=== PATIENT | female | born 1950 | race Caucasian/White ===

== ENCOUNTER → 2016-10-22 | Day surgery (SDC) | payer OTHER ==
[~2016-10-22] VITALS: Ht 165.1 cm; Wt 72.7 kg
[2016-10-22 10:18] LABS: HCT 45.6 % (37.0-47.0); HGB 15.6 g/dl (12.5-16.0); MCH 31.9 pg (25.0-31.0); MCHC 34.2 g/dL (32.0-36.0); MCV 93.3 fL (78.0-100.0); MPV 10.4 fL (6.0-9.5); RBC 4.89 M/uL (4.20-5.40); RDW 14.1 % (11.5-14.0); WBC 10.8 K/uL (4.0-10.5)
[2016-10-22 10:37] LABS: ALBUMIN 4.2 g/dL (3.4-4.8); BILIRUBIN - TOTAL 0.5 mg/dL (0.1-1.0); CREATININE 0.7 mg/dL (0.5-1.0); GLOBULIN (CALCULATION) 2.6 g/dL (2.2-4.2); POTASSIUM 4.8 mmol/L (3.5-5.1); TOTAL PROTEIN 6.8 g/dL (6.4-8.3)
== END | disposition home or self-care (01) ==
LOC: FAS 10-08 09:00 → FIS 08:02 → FAS 08:02
PROVIDERS: Surgery
DX: K29.50 Unspecified chronic gastritis without bleeding (principal); K21.0 Gastro-esophageal reflux disease with esophagitis; M19.90 Unspecified osteoarthritis, unspecified site; Z87.891 Personal history of nicotine dependence; Z90.710 Acquired absence of both cervix and uterus; Z98.890 Other specified postprocedural states
CPT/HCPCS: 36415; 76705; 80053; 88305; J2704

== ENCOUNTER → 2020-06-06 | Day surgery (SDC) | payer MEDICARE ==
[~2020-06-06] MED LIST: CLARITIN10 MG PO; ELIQUIS5 MG PO; ENDOCET 5-3251 EACH PO; HCTZ25 MG PO; LIPITOR 10MG TA10 MG PO; LISINOPRIL 5 MG5 MG PO; LOPRESSOR25 MG PO; MELOXICAM15 MG PO; MOBIC7.5 MG PO; MUCINEX 600MG600 MG PO; PROCHLORPERAZIN10 M1 PO; PROZAC20 MG PO; SPIRIVA18 MCG INH; SYNTHROID112 MCG PO; SYNTHROID88 MCG PO; TRAZODONE 50MG50 MG PO; VENTOLIN HFA IN18 GM INH; VITAMIN D3125 MC1 PO; VITAMIN D3125 MC2 PO
== END | disposition home or self-care (01) ==
LOC: FAS 08:58
DX: C34.92 Malignant neoplasm of unspecified part of left bronchus or lung (principal); J44.9 Chronic obstructive pulmonary disease, unspecified; K21.9 Gastro-esophageal reflux disease without esophagitis; I10 Essential (primary) hypertension; E78.5 Hyperlipidemia, unspecified; E89.0 Postprocedural hypothyroidism; F17.200 Nicotine dependence, unspecified, uncomplicated; Z79.899 Other long term (current) drug therapy
CPT/HCPCS: 71045; 76000; 93005; C1788; J0690; J1644; J2001; J2250; J2704; J3010; J7120

== ENCOUNTER 2020-07-31 01:23 | Inpatient (IN) | payer MEDICARE ==
[~2020-07-31 01:23] MED LIST changes: -ELIQUIS5 MG PO; -MELOXICAM15 MG PO; -PROCHLORPERAZIN10 M1 PO; -SYNTHROID112 MCG PO; -VITAMIN D3125 MC2 PO
[2020-07-31 02:00] LABS: BASOPHIL 0 % (0-2); EOSINOPHIL 0 % (0-7); HCT 20.2 % (37.0-47.0); HGB 7.1 g/dl (12.5-16.0); LYMPHOCYTE 68.9 % (15-48); MCH 32.1 pg (25.0-31.0); MCHC 35.1 g/dL (32.0-36.0); MCV 91.4 fL (78.0-100.0); MONOCYTE 21.3 % (0-12); MPV 10.6 fL (6.0-9.5); NEUTROPHIL 9.8 % (41-80); NRBC 0; PLT 168 K/uL (150-400); RBC 2.21 M/uL (4.20-5.40); RDW 12.6 % (11.5-14.0)
[2020-07-31 02:08] LABS: WBC 0.6 K/uL (4.0-10.5)
[2020-07-31 02:22] LABS: INR 1.06 (0.9-1.2); PROTHROMBIN TIME 13.1 SECONDS (11.4-13.6)
[2020-07-31 02:34] LABS: LACTIC ACID 3.7 mmol/L (0.4-1.9)
[2020-07-31 02:45] LABS: ALBUMIN 2.7 g/dL (3.4-5.0); BILIRUBIN - TOTAL 0.2 mg/dL (0.2-1.0); BUN/CREAT RATIO (CALC) 27.9 RATIO; C-REACTIVE PROTEIN 12.4 mg/dL (<=0.90); CREATININE 0.68 mg/dL (0.51-0.95); GLOBULIN (CALCULATION) 3.3 g/dL; MAGNESIUM 1.6 mg/dL (1.8-2.4); POTASSIUM 3.3 mmol/L (3.5-5.1)
[2020-07-31 03:21] LABS: CORONAVIRUS 2019 SARS-COV-2 NEGATIVE (NEGATIVE); INFLUENZA A NAA NEGATIVE (NEGATIVE)
[2020-07-31 03:32] LABS: BILIRUBIN NEGATIVE (NEGATIVE); BLOOD 1+ Ery/uL (NEGATIVE); CLARITY CLEAR (CLEAR); COLOR YELLOW (YELLOW); GLUCOSE (U) NORMAL (NORMAL); LEUKOCYTES NEGATIVE Leu/uL (NEGATIVE); NITRITE NEGATIVE (NEGATIVE); PROTEIN NEGATIVE (NEGATIVE); SPECIFIC GRAVITY 1.025 (1.001-1.030); UROBILINOGEN 0.2 mg/dL (0.2-1.0)
[2020-07-31 03:38] LABS: BACTERIA 1+
[2020-07-31] MEDS ORDERED: PROCHLORPERAZIN10 M1 PO (04:35)
[2020-07-31] MEDS ORDERED: MELOXICAM15 MG PO (04:51)
[2020-07-31] MEDS ORDERED: VITAMIN D3125 MC2 PO (04:52)
[2020-07-31 08:45] LABS: BASOPHIL 0 % (0-2); EOSINOPHIL 0 % (0-7); HCT 18.8 % (37.0-47.0); HGB 6.6 g/dl (12.5-16.0); LYMPHOCYTE 57.1 % (15-48); MCH 32.2 pg (25.0-31.0); MCHC 35.1 g/dL (32.0-36.0); MCV 91.7 fL (78.0-100.0); MONOCYTE 38.1 % (0-12); MPV 9.8 fL (6.0-9.5); NEUTROPHIL 4.8 % (41-80); NRBC 0; PLT 122 K/uL (150-400); RBC 2.05 M/uL (4.20-5.40); RDW 12.5 % (11.5-14.0)
[2020-07-31 09:00] LABS: WBC 0.4 K/uL (4.0-10.5)
[2020-07-31 09:17] LABS: BUN/CREAT RATIO (CALC) 19.1 RATIO; CREATININE 0.68 mg/dL (0.51-0.95); POTASSIUM 3.3 mmol/L (3.5-5.1)
[2020-08-01 05:32] LABS: BASOPHIL 0 % (0-2); EOSINOPHIL 0 % (0-7); HCT 24.8 % (37.0-47.0); HGB 8.5 g/dl (12.5-16.0); LYMPHOCYTE 59.3 % (15-48); MCH 30.4 pg (25.0-31.0); MCHC 34.3 g/dL (32.0-36.0); MCV 88.6 fL (78.0-100.0); MONOCYTE 36.3 % (0-12); MPV 10.4 fL (6.0-9.5); NEUTROPHIL 4.4 % (41-80); PLT 101 K/uL (150-400); RDW 13.4 % (11.5-14.0); RETICULOCYTE COUNT 0.7 % (1.0-2.0)
[2020-08-01 05:39] LABS: WBC 1.1 K/uL (4.0-10.5)
[2020-08-01 05:47] LABS: IRON % SATURATION 96.9 %SAT (20-50)
[2020-08-01 06:13] LABS: ALBUMIN 1.9 g/dL (3.4-5.0); BILIRUBIN - TOTAL 0.6 mg/dL (0.2-1.0); BUN/CREAT RATIO (CALC) 14.9 RATIO; CREATININE 0.74 mg/dL (0.51-0.95); GLOBULIN (CALCULATION) 2.9 g/dL; MAGNESIUM 1.4 mg/dL (1.8-2.4); PHOSPHORUS 2.5 mg/dL (2.6-4.7); TOTAL PROTEIN 4.8 g/dL (6.4-8.2)
[2020-08-01 06:25] LABS: BAND 2 % (0-10); LYMPHOCYTE(M) 48 % (15-48); METAMYELOCYTE 4; MONOCYTE(M) 12 % (0-12); MYELOCYTE 2; NEUTROPHILS(M) 16 % (41-80); TOTAL CELL COUNT 50; VARIANT LYMPHOCYTE 16
[2020-08-01 06:26] LABS: PLATELET ESTIMATE NORMAL; PLATELET MORPHOLOGY NORMAL
[2020-08-02 05:43] LABS: BASOPHIL 0 % (0-2); EOSINOPHIL 0 % (0-7); HCT 25.7 % (37.0-47.0); LYMPHOCYTE 43.3 % (15-48); MCH 30.7 pg (25.0-31.0); MCV 87.7 fL (78.0-100.0); MONOCYTE 42.7 % (0-12); MPV 10.6 fL (6.0-9.5); NRBC 1.3; PLT 93 K/uL (150-400); RBC 2.93 M/uL (4.20-5.40); RDW 13.5 % (11.5-14.0)
[2020-08-02 06:25] LABS: BAND 4 % (0-10); LYMPHOCYTE(M) 52 % (15-48); MONOCYTE(M) 32 % (0-12); NEUTROPHILS(M) 4 % (41-80); TOTAL CELL COUNT 50; VARIANT LYMPHOCYTE 8
[2020-08-02 06:26] LABS: PLATELET ESTIMATE DECREASED; PLATELET MORPHOLOGY NORMAL
[2020-08-02 06:29] LABS: WBC 1.6 K/uL (4.0-10.5)
[2020-08-02 07:03] LABS: BUN/CREAT RATIO (CALC) 6.8 RATIO; CREATININE 0.59 mg/dL (0.51-0.95); FOLIC ACID (SERUM) 14.9 ng/mL (8.6-58.9); MAGNESIUM 1.8 mg/dL (1.8-2.4); PHOSPHORUS 2.3 mg/dL (2.6-4.7); POTASSIUM 3.1 mmol/L (3.5-5.1)
--- NOTE | 2020-08-02 11:53 | NUR ---
08/02/20 Ms. Nieto lives with her spouse. She is followed by Dr. beckham. Ms. Nieto does not use DME or have HH services. She is currently using 02. Please monitor for HH needs.
[2020-08-02] MEDS ORDERED: ELIQUIS5 MG PO (15:28)
--- NOTE | 2020-08-02 16:27 | NUR ---
PT. DRUG COVERAGE IS [employer]. TC TO [facility]. THE AUTHORIZATION IS [id number]. TC TO DUC ADVISED OF AUTH. THE COST IS $183.50. ADVISED THE PT AND DAUGHTER AND THEY WERE IN AGREEMENT WITH THE COST.
[2020-08-03 08:27] LABS: BASOPHIL 0.8 % (0-2); EOSINOPHIL 0 % (0-7); HCT 27.6 % (37.0-47.0); HGB 9.4 g/dl (12.5-16.0); LYMPHOCYTE 34.1 % (15-48); MCH 30.8 pg (25.0-31.0); MCHC 34.1 g/dL (32.0-36.0); MCV 90.5 fL (78.0-100.0); MONOCYTE 28.6 % (0-12); NEUTROPHIL 35.7 % (41-80); NRBC 0; RBC 3.05 M/uL (4.20-5.40); RDW 14.1 % (11.5-14.0)
[2020-08-03 08:37] LABS: ALBUMIN 3.5 g/dL (3.4-5.0); BILIRUBIN - TOTAL 0.7 mg/dL (0.2-1.0); BUN/CREAT RATIO (CALC) 11.7 RATIO; CREATININE 1.2 mg/dL (0.51-0.95); POTASSIUM 4.1 mmol/L (3.5-5.1); TOTAL PROTEIN 6.5 g/dL (6.4-8.2)
[2020-08-03 08:40] LABS: MAGNESIUM 2.2 mg/dL (1.8-2.4)
[2020-08-03 09:00] LABS: PLT 79 K/uL (150-400); WBC 2.6 K/uL (4.0-10.5)
[2020-08-03 09:02] LABS: LYMPHOCYTE(M) 40 % (15-48); NEUTROPHILS(M) 50 % (41-80)
[2020-08-03 09:03] LABS: MONOCYTE(M) 10 % (0-12); PLATELET ESTIMATE DECREASED; TOTAL CELL COUNT 10
[2020-08-03 09:04] LABS: PLATELET MORPHOLOGY NORMAL
[2020-08-04 06:12] LABS: BUN/CREAT RATIO (CALC) 7.6 RATIO; CREATININE 0.79 mg/dL (0.51-0.95); POTASSIUM 3.2 mmol/L (3.5-5.1)
[2020-08-04 06:27] LABS: BASOPHIL 0.3 % (0-2); EOSINOPHIL 0.3 % (0-7); HCT 23.9 % (37.0-47.0); HGB 8.5 g/dl (12.5-16.0); LYMPHOCYTE 30.3 % (15-48); MCH 31.1 pg (25.0-31.0); MCHC 35.6 g/dL (32.0-36.0); MCV 87.5 fL (78.0-100.0); MONOCYTE 21.3 % (0-12); MPV 10.9 fL (6.0-9.5); NEUTROPHIL 46.8 % (41-80); NRBC 0; RBC 2.73 M/uL (4.20-5.40); RDW 13.8 % (11.5-14.0)
[2020-08-04 07:13] LABS: PLT 57 K/uL (150-400)
[2020-08-04 07:14] LABS: WBC 3.1 K/uL (4.0-10.5)
[2020-08-04 07:19] LABS: BLAST 8; LYMPHOCYTE(M) 36 % (15-48); MONOCYTE(M) 16 % (0-12); NEUTROPHILS(M) 40 % (41-80); PLATELET ESTIMATE DECREASED; PLATELET MORPHOLOGY NORMAL; TOTAL CELL COUNT 25
[2020-08-04 21:14] LABS: BILIRUBIN NEGATIVE (NEGATIVE); BLOOD TRACE-INTACT Ery/uL (NEGATIVE); CLARITY CLEAR (CLEAR); COLOR YELLOW (YELLOW); GLUCOSE (U) NORMAL (NORMAL); LEUKOCYTES NEGATIVE Leu/uL (NEGATIVE); NITRITE NEGATIVE (NEGATIVE); PROTEIN NEGATIVE (NEGATIVE); SPECIFIC GRAVITY 1.015 (1.001-1.030); UROBILINOGEN 0.2 mg/dL (0.2-1.0)
[2020-08-04 21:20] LABS: BACTERIA TRACE; URINARY RBC RARE
[2020-08-05 03:11] LABS: BASOPHIL 0.3 % (0-2); EOSINOPHIL 0.3 % (0-7); HGB 7.3 g/dl (12.5-16.0); LYMPHOCYTE 36.6 % (15-48); MCH 31.1 pg (25.0-31.0); MCHC 34.8 g/dL (32.0-36.0); MCV 89.4 fL (78.0-100.0); MONOCYTE 15.9 % (0-12); MPV 10.7 fL (6.0-9.5); NRBC 0; PLT 34 K/uL (150-400); RBC 2.35 M/uL (4.20-5.40); WBC 3.5 K/uL (4.0-10.5)
[2020-08-05 03:13] LABS: INR 1.28 (0.9-1.2); PROTHROMBIN TIME 15.2 SECONDS (11.4-13.6)
[2020-08-05 03:19] LABS: BUN/CREAT RATIO (CALC) 6.7 RATIO; CREATININE 1.04 mg/dL (0.51-0.95); POTASSIUM 3.5 mmol/L (3.5-5.1)
[2020-08-05 03:29] LABS: MAGNESIUM 0.9 mg/dL (1.8-2.4)
[2020-08-05 03:33] LABS: PTT 102.8 SECONDS (22.2-34.7)
[2020-08-05 03:34] LABS: ANISOCYTOSIS SLIGHT; BAND 6 % (0-10); BASOPHIL(M) 0 % (0-2); EOSINOPHIL(M) 0 % (0-7); LYMPHOCYTE(M) 32 % (15-48); MONOCYTE(M) 15 % (0-12); NEUTROPHILS(M) 47 % (41-80); POLYCHROMASIA SLIGHT; TOTAL CELL COUNT 100
[2020-08-05 03:35] LABS: PLATELET ESTIMATE DECREASED; PLATELET MORPHOLOGY NORMAL
--- NOTE | 2020-08-05 09:54 | NUR ---
08/05/20 0830 ORDER RECEIVED FOR PICC LINE. PROCEDURE EXPLAINED TO PT. CONSENT SIGNED. PT PREPPED AND DRAPED IN STERILE FASHION. THE PT'S LEFT UPER ARM BASILIC VEIN WAS VISUALIZED USNG THE SITE RITE 6. PT'S CAITLYN ARE SMALL. THE SITE WAS CLEANSED WITH CHLORAPREP. THE AREA WAS NUMBED WITH 1% 0.5ML OF LIDOCAINE. A 21GA NEEDLE WAS USED, GOOD BLOOD RETUN WAS NOTED. ATTEMPTED TO PLACE THE GUIDE WIRE INTO THE NEEDLE. RESISTANCE MET AT APPROXIMATELY 5CM. PROCEDURE STOPPED AND NEEDLE AND WIRE REMOVED TOGETHER. ATTEMPTED AGAIN FURTHER UP ARM IN ANOTHER BASILIC VEIN. USING THE SAME PROCEDURE. THE GUIDE WIRE STILL UNABLE TO THREAD. PROCEDURE ABORTED. PRESSURE APPLIED AT THE PUNCTURE SITE. PT TOLERTED WELL. REPORT TO Sabiha MCLEOD RN.
--- NOTE | 2020-08-05 14:27 | NUR ---
I have reviewed the assessment documented by the Student Nurse and agree with the findings.
[2020-08-05 21:52] LABS: INR 1.22 (0.9-1.2); PROTHROMBIN TIME 14.6 SECONDS (11.4-13.6); PTT 41.1 SECONDS (22.2-34.7)
[2020-08-06 08:41] LABS: BASOPHIL 0.2 % (0-2); EOSINOPHIL 0 % (0-7); HCT 20.7 % (37.0-47.0); HGB 7.2 g/dl (12.5-16.0); MCH 31.3 pg (25.0-31.0); MCHC 34.8 g/dL (32.0-36.0); MONOCYTE 15.5 % (0-12); NEUTROPHIL 58.6 % (41-80); NRBC 0; RDW 14.3 % (11.5-14.0); WBC 4.2 K/uL (4.0-10.5)
[2020-08-06 08:50] LABS: INR 1.17 (0.9-1.2); PROTHROMBIN TIME 14.1 SECONDS (11.4-13.6)
[2020-08-06 08:51] LABS: PTT 49.3 SECONDS (22.2-34.7)
[2020-08-06 09:08] LABS: PLT 20 K/uL (150-400)
[2020-08-06 09:15] LABS: BILIRUBIN - TOTAL 0.3 mg/dL (0.2-1.0); BUN/CREAT RATIO (CALC) 9.4 RATIO; CREATININE 0.96 mg/dL (0.51-0.95); POTASSIUM 3.3 mmol/L (3.5-5.1)
[2020-08-07 05:28] LABS: BASOPHIL 0 % (0-2); EOSINOPHIL 0 % (0-7); HCT 17.4 % (37.0-47.0); LYMPHOCYTE 26.9 % (15-48); MCH 31.3 pg (25.0-31.0); MCHC 34.5 g/dL (32.0-36.0); MCV 90.6 fL (78.0-100.0); MONOCYTE 16.7 % (0-12); MPV 11.9 fL (6.0-9.5); NEUTROPHIL 55.5 % (41-80); NRBC 0; RBC 1.92 M/uL (4.20-5.40); RDW 14.3 % (11.5-14.0); WBC 3.4 K/uL (4.0-10.5)
[2020-08-07 05:45] LABS: INR 1.07 (0.9-1.2); PROTHROMBIN TIME 13.2 SECONDS (11.4-13.6); PTT 37.1 SECONDS (22.2-34.7)
[2020-08-07 05:50] LABS: ALBUMIN 1.7 g/dL (3.4-5.0); BILIRUBIN - TOTAL 0.3 mg/dL (0.2-1.0); BUN/CREAT RATIO (CALC) 7.3 RATIO; CREATININE 1.92 mg/dL (0.51-0.95); GLOBULIN (CALCULATION) 2.9 g/dL; POTASSIUM 3.5 mmol/L (3.5-5.1); TOTAL PROTEIN 4.6 g/dL (6.4-8.2)
[2020-08-07 05:56] LABS: PLT 9 K/uL (150-400)
[2020-08-07 16:27] LABS: HCT 17.1 % (37.0-47.0)
[2020-08-08 06:20] LABS: BASOPHIL 0.2 % (0-2); EOSINOPHIL 0 % (0-7); HCT 27.2 % (37.0-47.0); MCHC 34.6 g/dL (32.0-36.0); MCV 89.8 fL (78.0-100.0); MONOCYTE 13.2 % (0-12); MPV 9.9 fL (6.0-9.5); NEUTROPHIL 64.8 % (41-80); NRBC 0; RBC 3.03 M/uL (4.20-5.40); RDW 13.8 % (11.5-14.0); WBC 5.3 K/uL (4.0-10.5)
[2020-08-08 06:30] LABS: BUN/CREAT RATIO (CALC) 6.3 RATIO; CREATININE 2.54 mg/dL (0.51-0.95); GLOBULIN (CALCULATION) 3.3 g/dL; HGB 9.4 g/dl (12.5-16.0); POTASSIUM 3.6 mmol/L (3.5-5.1); TOTAL PROTEIN 5.3 g/dL (6.4-8.2)
[2020-08-08 06:39] LABS: PLT 40 K/uL (150-400)
[2020-08-08 06:56] LABS: INR 1.1 (0.9-1.2); PROTHROMBIN TIME 13.5 SECONDS (11.4-13.6)
[2020-08-08 06:57] LABS: PTT 37.3 SECONDS (22.2-34.7)
[2020-08-08 12:14] LABS: URINE CREATININE 36.42 mg/dL (29.00-226.00)
--- NOTE | 2020-08-08 16:28 | NUR ---
SPOKE WITH PT. NURSE, TIM. SHE ADVISED THAT PT. IS ON ROOM AIR AND WILL NOT NEED O2. ADVISED HER THAT PT.WOULD PREFER NOT TO HAVE HH AT THIS TIME. TIM STATED THAT PT. HAS GOOD FAMILY SUPPORT AND IT MAY NOT BE NEEDED.
[2020-08-08 17:11] LABS: HEPARIN INDUCED PLATELET AB 0.307 OD (0.000-0.400)
[2020-08-09 07:26] LABS: BUN/CREAT RATIO (CALC) 9.3 RATIO; CREATININE 2.81 mg/dL (0.51-0.95); POTASSIUM 3.9 mmol/L (3.5-5.1)
[2020-08-09 07:42] LABS: BASOPHIL 0.3 % (0-2); EOSINOPHIL 0 % (0-7); HCT 25.8 % (37.0-47.0); HGB 9.2 g/dl (12.5-16.0); MCH 32.1 pg (25.0-31.0); MCHC 35.7 g/dL (32.0-36.0); MCV 89.9 fL (78.0-100.0); MONOCYTE 16.9 % (0-12); MPV 11.1 fL (6.0-9.5); NRBC 0; RBC 2.87 M/uL (4.20-5.40); RDW 14.3 % (11.5-14.0); WBC 3.9 K/uL (4.0-10.5)
[2020-08-09 07:46] LABS: PLT 23 K/uL (150-400)
--- NOTE | 2020-08-09 12:03 | NUR ---
I have reviewed the assessment documented by the Student Nurse and agree with the findings.
[2020-08-10 06:09] LABS: BASOPHIL 0.2 % (0-2); EOSINOPHIL 0 % (0-7); HCT 26.6 % (37.0-47.0); HGB 9.4 g/dl (12.5-16.0); LYMPHOCYTE 29.2 % (15-48); MCH 31.6 pg (25.0-31.0); MCHC 35.3 g/dL (32.0-36.0); MCV 89.6 fL (78.0-100.0); MONOCYTE 16.5 % (0-12); MPV 10.9 fL (6.0-9.5); NEUTROPHIL 53.6 % (41-80); NRBC 0; RBC 2.97 M/uL (4.20-5.40); RDW 14.1 % (11.5-14.0); WBC 4.1 K/uL (4.0-10.5)
[2020-08-10 06:19] LABS: BUN/CREAT RATIO (CALC) 8.5 RATIO; CREATININE 2.84 mg/dL (0.51-0.95); POTASSIUM 3.6 mmol/L (3.5-5.1)
[2020-08-10 06:28] LABS: PLT 17 K/uL (150-400)
--- NOTE | 2020-08-10 18:33 | NUR ---
PATIENT AND PATIENT FAMILY MEMBER REQUESTED TO CHANGE ROOMS TO OTHER SIDE OF HALLWAY BECAUSE PATIENTS FAMILY MEMBER STATED "THIS ROOM IS DEPRESSING. ALL YOU CAN SEE IS PIGEONS." PCAT INSTRUCTOR DWIAN NOTIFIED AND PATIENT IS BEING MOVED TO ROOM 211
[2020-08-11 08:02] LABS: HCT 28.1 % (37.0-47.0); HGB 9.8 g/dl (12.5-16.0); MCH 31.1 pg (25.0-31.0); MCHC 34.9 g/dL (32.0-36.0); MCV 89.2 fL (78.0-100.0); MPV 10.2 fL (6.0-9.5); RBC 3.15 M/uL (4.20-5.40); RDW 14.3 % (11.5-14.0); WBC 5.2 K/uL (4.0-10.5)
[2020-08-11 08:18] LABS: BUN/CREAT RATIO (CALC) 8.2 RATIO; CREATININE 2.93 mg/dL (0.51-0.95); POTASSIUM 3.7 mmol/L (3.5-5.1)
[2020-08-12 04:33] LABS: BASOPHIL 0.3 % (0-2); EOSINOPHIL 0.5 % (0-7); HCT 24.3 % (37.0-47.0); HGB 8.5 g/dl (12.5-16.0); LYMPHOCYTE 35.2 % (15-48); MCH 31.3 pg (25.0-31.0); MCV 89.3 fL (78.0-100.0); MONOCYTE 16.7 % (0-12); MPV 11.5 fL (6.0-9.5); NEUTROPHIL 46.8 % (41-80); NRBC 0; RBC 2.72 M/uL (4.20-5.40); RDW 14.2 % (11.5-14.0)
[2020-08-12 04:47] LABS: BUN/CREAT RATIO (CALC) 7.9 RATIO; CREATININE 2.91 mg/dL (0.51-0.95); POTASSIUM 3.2 mmol/L (3.5-5.1)
[2020-08-12 04:49] LABS: PLT 10 K/uL (150-400)
[2020-08-13 05:23] LABS: BASOPHIL 0.3 % (0-2); EOSINOPHIL 0.8 % (0-7); HCT 24.1 % (37.0-47.0); HGB 8.3 g/dl (12.5-16.0); LYMPHOCYTE 30.6 % (15-48); MCH 31.1 pg (25.0-31.0); MCHC 34.4 g/dL (32.0-36.0); MCV 90.3 fL (78.0-100.0); MONOCYTE 19.1 % (0-12); NEUTROPHIL 48.7 % (41-80); RBC 2.67 M/uL (4.20-5.40); RDW 14.2 % (11.5-14.0); WBC 3.8 K/uL (4.0-10.5)
[2020-08-13 05:28] LABS: PLT 55 K/uL (150-400)
[2020-08-13 05:44] LABS: BUN/CREAT RATIO (CALC) 8.6 RATIO; CREATININE 2.8 mg/dL (0.51-0.95); PHOSPHORUS 4.1 mg/dL (2.6-4.7); POTASSIUM 3.8 mmol/L (3.5-5.1)
[2020-08-13 06:37] LABS: BAND 4 % (0-10); LYMPHOCYTE(M) 33 % (15-48); MONOCYTE(M) 11 % (0-12); NEUTROPHILS(M) 49 % (41-80); NRBC 0; PLATELET ESTIMATE DECREASED; TOTAL CELL COUNT 100; VARIANT LYMPHOCYTE 3
[2020-08-13 06:38] LABS: PLATELET MORPHOLOGY NORMAL
[2020-08-13 13:41] LABS: BASOPHIL 0.2 % (0-2); EOSINOPHIL 0.7 % (0-7); HCT 24.3 % (37.0-47.0); HGB 8.4 g/dl (12.5-16.0); LYMPHOCYTE 22.8 % (15-48); MCH 31.2 pg (25.0-31.0); MCHC 34.6 g/dL (32.0-36.0); MCV 90.3 fL (78.0-100.0); MONOCYTE 16.1 % (0-12); MPV 10.3 fL (6.0-9.5); NEUTROPHIL 59.5 % (41-80); NRBC 0; PLT 64 K/uL (150-400); RBC 2.69 M/uL (4.20-5.40); RDW 14.1 % (11.5-14.0); RETICULOCYTE COUNT 0.8 % (1.0-2.0)
[2020-08-13 13:49] LABS: IRON % SATURATION 39.8 %SAT (20-50)
[2020-08-13 14:06] LABS: ALBUMIN 2.4 g/dL (3.4-5.0); BILIRUBIN - TOTAL 0.4 mg/dL (0.2-1.0); BUN/CREAT RATIO (CALC) 8.9 RATIO; C-REACTIVE PROTEIN 5.8 mg/dL (<=0.90); CREATININE 2.71 mg/dL (0.51-0.95); FOLIC ACID (SERUM) 11.3 ng/mL (8.6-58.9); FT4 (FREE T4) 0.9 ng/dL (0.76-1.46); GLOBULIN (CALCULATION) 3.4 g/dL; MAGNESIUM 1.9 mg/dL (1.8-2.4); TOTAL PROTEIN 5.8 g/dL (6.4-8.2)
[2020-08-14 05:44] LABS: BASOPHIL 0.3 % (0-2); HCT 22.9 % (37.0-47.0); LYMPHOCYTE 31.5 % (15-48); MCH 31.5 pg (25.0-31.0); MCHC 34.9 g/dL (32.0-36.0); MCV 90.2 fL (78.0-100.0); MONOCYTE 21.4 % (0-12); MPV 10.8 fL (6.0-9.5); NEUTROPHIL 45.3 % (41-80); NRBC 0; RBC 2.54 M/uL (4.20-5.40); WBC 3.8 K/uL (4.0-10.5)
[2020-08-14 05:47] LABS: PLT 43 K/uL (150-400)
[2020-08-14 05:50] LABS: INR 1.09 (0.9-1.2); PROTHROMBIN TIME 13.4 SECONDS (11.4-13.6)
[2020-08-14 06:10] LABS: ALBUMIN 2.3 g/dL (3.4-5.0); BILIRUBIN - TOTAL 0.3 mg/dL (0.2-1.0); CREATININE 2.66 mg/dL (0.51-0.95); FOLIC ACID (SERUM) 9.4 ng/mL (8.6-58.9); MAGNESIUM 1.6 mg/dL (1.8-2.4); PHOSPHORUS 3.8 mg/dL (2.6-4.7); POTASSIUM 3.6 mmol/L (3.5-5.1); TOTAL PROTEIN 5.3 g/dL (6.4-8.2)
[2020-08-14 06:26] LABS: BAND 5 % (0-10); EOSINOPHIL(M) 1 % (0-7); LYMPHOCYTE(M) 30 % (15-48); MONOCYTE(M) 14 % (0-12); NEUTROPHILS(M) 50 % (41-80)
[2020-08-14 06:27] LABS: ANISOCYTOSIS SLIGHT; PLATELET ESTIMATE DECREASED; PLATELET MORPHOLOGY NORMAL
[2020-08-14 06:29] LABS: PTT 114.5 SECONDS (22.2-34.7)
[2020-08-15 05:06] LABS: BASOPHIL 0.5 % (0-2); EOSINOPHIL 1.4 % (0-7); HCT 22.3 % (37.0-47.0); HGB 7.6 g/dl (12.5-16.0); LYMPHOCYTE 36.7 % (15-48); MCHC 34.1 g/dL (32.0-36.0); MONOCYTE 21.4 % (0-12); MPV 11.4 fL (6.0-9.5); NEUTROPHIL 39.3 % (41-80); NRBC 0; RBC 2.45 M/uL (4.20-5.40); RDW 14.4 % (11.5-14.0); WBC 4.2 K/uL (4.0-10.5)
[2020-08-15 05:28] LABS: ALBUMIN 2.4 g/dL (3.4-5.0); BILIRUBIN - TOTAL 0.3 mg/dL (0.2-1.0); BUN/CREAT RATIO (CALC) 8.3 RATIO; CREATININE 2.64 mg/dL (0.51-0.95); GLOBULIN (CALCULATION) 3.1 g/dL; POTASSIUM 3.3 mmol/L (3.5-5.1); TOTAL PROTEIN 5.5 g/dL (6.4-8.2)
[2020-08-15 05:41] LABS: MAGNESIUM 2.3 mg/dL (1.8-2.4)
[2020-08-15 06:33] LABS: EOSINOPHIL(M) 1 % (0-7); LYMPHOCYTE(M) 44 % (15-48); MONOCYTE(M) 8 % (0-12); NEUTROPHILS(M) 43 % (41-80); PLATELET ESTIMATE DECREASED; PLATELET MORPHOLOGY NORMAL; TOTAL CELL COUNT 100; VARIANT LYMPHOCYTE 4
[2020-08-15 06:34] LABS: PLT 69 K/uL (150-400)
--- NOTE | 2020-08-15 12:28 | NUR ---
08/15/20 Ms. Nieto will be discharged today. A referral was made to [facility] for nursing per patient choice. Report given to MS MARILEE Henderson
[2020-08-15] MEDS ORDERED: ELIQUIS5 MG PO (12:29)
[2020-08-15] MEDS ORDERED: SYNTHROID112 MCG PO (12:29)
[2020-08-16 00:07] LABS: ADAMTS13 ACTIVITY 68.2 % (>66.8)
== END 2020-08-15 13:54 | disposition home health service (06) | DRG 853 ==
LOC: FER 01:23 → FTCU 03:28 → FMS 08-01 10:20
PROVIDERS: Emergency Medicine; Internal Medicine; Internal Medicine Hematology & Oncology; Nurse Practitioner; Student in an Organized Health Care Education/Training Program; ADMIT Internal Medicine
PROC: 30233N1 Transfusion of Nonautologous Red Blood Cells into Peripheral Vein, Percutaneous Approach (ICD-10-PCS; 2020-07-31)
PROC: 8E0ZXY6 Isolation (ICD-10-PCS; 2020-07-31)
PROC: B518ZZA Fluoroscopy of Superior Vena Cava, Guidance (ICD-10-PCS; 2020-08-05)
PROC: 0JPT0WZ Removal of Totally Implantable Vascular Access Device from Trunk Subcutaneous Tissue and Fascia, Open Approach (ICD-10-PCS; 2020-08-05)
PROC: 05CM3ZZ Extirpation of Matter from Right Internal Jugular Vein, Percutaneous Approach (ICD-10-PCS; 2020-08-05)
PROC: 0JH60WZ Insertion of Totally Implantable Vascular Access Device into Chest Subcutaneous Tissue and Fascia, Open Approach (ICD-10-PCS; principal; 2020-08-05 15:00)
PROC: 02HV33Z Insertion of Infusion Device into Superior Vena Cava, Percutaneous Approach (ICD-10-PCS; 2020-08-05 15:00)
PROC: 30233N1 Transfusion of Nonautologous Red Blood Cells into Peripheral Vein, Percutaneous Approach (ICD-10-PCS; 2020-08-07)
PROC: 30233N1 Transfusion of Nonautologous Red Blood Cells into Peripheral Vein, Percutaneous Approach (ICD-10-PCS; 2020-08-08)
PROC: 30233R1 Transfusion of Nonautologous Platelets into Peripheral Vein, Percutaneous Approach (ICD-10-PCS; 2020-08-12)
DX: A41.9 Sepsis, unspecified organism (principal); N17.0 Acute kidney failure with tubular necrosis; D61.810 Antineoplastic chemotherapy induced pancytopenia; T82.868A Thrombosis due to vascular prosthetic devices, implants and grafts, initial encounter; I82.621 Acute embolism and thrombosis of deep veins of right upper extremity; C34.02 Malignant neoplasm of left main bronchus; D68.9 Coagulation defect, unspecified; D62 Acute posthemorrhagic anemia; K62.5 Hemorrhage of anus and rectum; K90.9 Intestinal malabsorption, unspecified; N39.0 Urinary tract infection, site not specified; Z20.822 Contact with and (suspected) exposure to COVID-19; E03.9 Hypothyroidism, unspecified; I10 Essential (primary) hypertension; T45.1X5A Adverse effect of antineoplastic and immunosuppressive drugs, initial encounter; E87.6 Hypokalemia; E83.42 Hypomagnesemia; F41.9 Anxiety disorder, unspecified; G47.00 Insomnia, unspecified; J43.9 Emphysema, unspecified; R50.81 Fever presenting with conditions classified elsewhere; Y83.8 Other surgical procedures as the cause of abnormal reaction of the patient, or of later complication, without mention of misadventure at the time of the procedure; Z90.710 Acquired absence of both cervix and uterus; Z90.49 Acquired absence of other specified parts of digestive tract; Z98.890 Other specified postprocedural states; Z79.899 Other long term (current) drug therapy
CPT/HCPCS: 36415; 36430; 71045; 71250; 76000; 80048; 80053; 80202; 81001; 82550; 82570; 82607; 82668; 82728; 82746; 83010; 83520; 83540; 83550; 83605; 83615; 83735; 83880; 84100; 84145; 84300; 84439; 84443; 84481; 84484; 85014; 85018; 85025; 85049; 85362; 85379; 85384; 85610; 85730; 86022; 86140; 86850; 86880; 86900; 86901; 86922; 87040; 87070; 87088; 93005; 93971; 94640; C1751; C1788; J0610; J0692; J1170; J1642; J1644; J1650; J1885; J1956; J2001; J2250; J2405; J2543; J2704; J2920; J2997; J3010; J3370; J3411; J3475; J7030; J7040; J7050; J7120; J9264; P9016; P9035; Q0138; Q5106; U0002